=== PATIENT | female | born 2000 | race African-American/Black ===

== ENCOUNTER 2023-03-27 22:18 | Emergency (ER) | payer OTHER | END 2023-03-28 00:11 | disposition home or self-care (01) | LOC: CSHERS 22:18 | DX: O99.891 Other specified diseases and conditions complicating pregnancy (principal); R10.30 Lower abdominal pain, unspecified; O99.511 Diseases of the respiratory system complicating pregnancy, first trimester; J45.909 Unspecified asthma, uncomplicated; O99.331 Smoking (tobacco) complicating pregnancy, first trimester; F17.210 Nicotine dependence, cigarettes, uncomplicated; Z3A.01 Less than 8 weeks gestation of pregnancy | CPT/HCPCS: 76801 ==

== ENCOUNTER 2023-05-01 00:58 | Emergency (ER) | payer OTHER ==
[2023-05-01 01:42] LABS: Bilirubin Neg (Negative); Blood, Urine 25 (Negative); Clarity Slightly Cloudy (Clear); Glucose, Urine (Dipstick) Normal (Negative); Ketone, Urine 5 mg/dL (Negative); Leukocyte Negative (Negative); Nitrite Positive (Negative); Protein, Urine (Dipstick) 15 mg/dl (Neg-Trace)
[2023-05-01 01:59] LABS: CAUTI Indications for Culture Pelvic or flank pain; RBC/HPF 0-3 HPF (0-3); Squamous Epithelial 0-3 HPF (0-3)
[2023-05-01 02:00] LABS: Bacteria/HPF 2+ HPF (None Seen); Urine Culture Reflex No No
[2023-05-01 02:21] LABS: #Basophils 0.1 10x3/uL (0.0-0.2); #Eosinphils 0.1 10x3/uL (0.0-0.5); #Monocytes 0.9 10x3/uL (0.0-1.1); #Neutrophils 3.9 10x3/uL (1.5-8.4); %Basophils 0.7 % (0.0-2.0); %Eosinophils 1.7 % (0.0-6.0); %Lymphocytes 28.5 % (18.0-47.0); %Monocytes 12.8 % (0.0-10.0); %Neutrophils 56.2 % (40.0-75.0); Hemoglobin 11.3 g/dL (12.0-15.5); Mean Corpuscular HGB CONC 35.3 g/dL (32.0-36.0); Mean Corpuscular Hemoglobin 31.3 pg (27.0-33.0); Mean Corpuscular Volume 88.6 fl (81.6-98.3); Mean Platelet Volume 9.9 fl (7.4-10.4); Platelet Count 236 10x3/uL (150-450); RBC Distribution Width 12.7 % (11.5-14.5); Red Blood Cell (RBC) Count 3.61 10x6/uL (3.90-5.03)
[2023-05-01] MEDS ORDERED: cefTRIAXone (ROCEPHIN) 1 GM VIAL ONE (02:34)
[2023-05-01 02:36] LABS: ALT (SGPT) 8 U/L (8-55); AST (SGOT) 12 U/L (5-34); Albumin 3.6 g/dL (3.5-5.0); Alkaline Phosphatase 35 U/L (40-110); Anion Gap 14 mmol/L (10-20); BUN (Urea Nitrogen) 10 mg/dL (7.0-18.7); Bilirubin, Total 0.2 mg/dL (0.2-1.2); Calc. Creatinine Clearance 0 mL/min (70-130); Calcium 8.8 mg/dL (7.8-10.44); Carbon Dioxide 20 mmol/L (22-29); Chloride 105 mmol/L (98-107); Estimated GFR 129; Globulin 2.6 g/dL (2.4-3.5); Glucose 81 mg/dL (70-105); Potassium 3.9 mmol/L (3.5-5.1); Protein, Total 6.2 g/dL (6.0-8.3); Sodium 135 mmol/L (136-145)
== END 2023-05-01 03:07 | disposition home or self-care (01) ==
LOC: CSHERS 00:58
DX: O23.41 Unspecified infection of urinary tract in pregnancy, first trimester (principal); O99.511 Diseases of the respiratory system complicating pregnancy, first trimester; J45.909 Unspecified asthma, uncomplicated; Z3A.11 11 weeks gestation of pregnancy
CPT/HCPCS: 76815; 80053; 81001; 84702; 85025; 87077; 87086; 87186; 96374; J0696

== ENCOUNTER 2023-07-06 15:59 | Day surgery (SDC) | payer OTHER ==
[2023-07-06 16:12] VITALS: BMI 19.5
[2023-07-06] MEDS ORDERED: hydrALAZINE 20 MG/ML VIAL SLOW IVP PRN (16:54)
[2023-07-06 17:55] LABS: #Eosinphils 0.1 10x3/uL (0.0-0.5); #Monocytes 0.6 10x3/uL (0.0-1.1); #Neutrophils 4.2 10x3/uL (1.5-8.4); %Basophils 0.3 % (0.0-2.0); %Eosinophils 2.1 % (0.0-6.0); %Lymphocytes 12.6 % (18.0-47.0); %Neutrophils 73.7 % (40.0-75.0); Hemoglobin 10.2 g/dL (12.0-15.5); Mean Corpuscular HGB CONC 35.2 g/dL (32.0-36.0); Mean Corpuscular Hemoglobin 32.2 pg (27.0-33.0); Mean Corpuscular Volume 91.5 fl (81.6-98.3); Mean Platelet Volume 10.7 fl (7.4-10.4); Platelet Count 171 10x3/uL (150-450); RBC Distribution Width 13.4 % (11.5-14.5); Red Blood Cell (RBC) Count 3.17 10x6/uL (3.90-5.03); White Blood Cell (WBC) Count 5.7 10x3/uL (3.5-10.5)
[2023-07-06 18:00] LABS: ALT (SGPT) 11 U/L (8-55); AST (SGOT) 13 U/L (5-34); Albumin 3.2 g/dL (3.5-5.0); Alkaline Phosphatase 41 U/L (40-110); Anion Gap 11 mmol/L (10-20); BUN (Urea Nitrogen) 7 mg/dL (7.0-18.7); Bilirubin, Total 0.3 mg/dL (0.2-1.2); Calc. Creatinine Clearance 115 mL/min (70-130); Calcium 8.5 mg/dL (7.8-10.44); Carbon Dioxide 22 mmol/L (22-29); Chloride 106 mmol/L (98-107); Estimated GFR 130; Globulin 2.6 g/dL (2.4-3.5); Glucose 69 mg/dL (70-105); Potassium 3.4 mmol/L (3.5-5.1); Protein, Total 5.8 g/dL (6.0-8.3); Sodium 136 mmol/L (136-145)
[2023-07-06 18:22] LABS: Bilirubin Neg (Negative); Blood, Urine 10 (Negative); Clarity Slightly Cloudy (Clear); Glucose, Urine (Dipstick) Normal (Negative); Ketone, Urine Negative (Negative); Leukocyte 500 (Negative); Nitrite Negative (Negative); Protein, Urine (Dipstick) 15 mg/dl (Neg-Trace); Urobilinogen Normal mg/dL (Less than 2); pH, Urine 6.5 (5.0-9.0)
[2023-07-06 18:28] LABS: SARS-CoV-2 NAA Rapid Test Not Detected (NotDetected)
[2023-07-06] MEDS ORDERED: Acetaminophen 500 MG TAB PO SCH (18:30)
[2023-07-06 18:45] LABS: Bacteria/HPF 2+ HPF (None Seen); RBC/HPF 0-3 HPF (0-3)
[2023-07-06] MEDS ORDERED: Polyethylene Glycol 3350 17 GM Packet PO SCH (19:15)
[2023-07-06] MEDS ORDERED: Docusate 100 MG CAP PO SCH (19:15)
== END 2023-07-06 19:38 | disposition home or self-care (01) ==
LOC: CSHLD/OP 15:59
PROVIDERS: ATTEND Family Medicine
DX: O99.891 Other specified diseases and conditions complicating pregnancy (principal); O99.512 Diseases of the respiratory system complicating pregnancy, second trimester; R10.9 Unspecified abdominal pain; R09.81 Nasal congestion; J45.909 Unspecified asthma, uncomplicated; Z3A.21 21 weeks gestation of pregnancy; Z79.899 Other long term (current) drug therapy; Z20.822 Contact with and (suspected) exposure to COVID-19
CPT/HCPCS: 36415; 80053; 81003; 81015; 85025

== ENCOUNTER 2023-08-12 16:15 | Emergency (ER) | payer OTHER | END 2023-08-12 17:27 | disposition left against medical advice (07) | LOC: CSHERS 16:15 | DX: Z53.21 Procedure and treatment not carried out due to patient leaving prior to being seen by health care provider (principal) ==

== ENCOUNTER 2023-08-15 13:53 | Inpatient (IN) | payer OTHER ==
[2023-08-15 15:16] VITALS: BMI 20.5
[2023-08-15] MEDS ORDERED: hydrALAZINE 20 MG/ML VIAL SLOW IVP PRN ×2 (15:42→21:48)
[2023-08-15 16:12] LABS: #Eosinphils 0.1 10x3/uL (0.0-0.5); #Monocytes 1.1 10x3/uL (0.0-1.1); #Neutrophils 7.1 10x3/uL (1.5-8.4); %Basophils 0.3 % (0.0-2.0); %Eosinophils 0.6 % (0.0-6.0); %Lymphocytes 12.2 % (18.0-47.0); %Monocytes 11.5 % (0.0-10.0); %Neutrophils 75.2 % (40.0-75.0); Hemoglobin 9.4 g/dL (12.0-15.5); Mean Corpuscular HGB CONC 36.2 g/dL (32.0-36.0); Mean Corpuscular Hemoglobin 32.1 pg (27.0-33.0); Mean Corpuscular Volume 88.7 fl (81.6-98.3); Platelet Count 185 10x3/uL (150-450); Red Blood Cell (RBC) Count 2.93 10x6/uL (3.90-5.03); White Blood Cell (WBC) Count 9.4 10x3/uL (3.5-10.5)
[2023-08-15 16:21] LABS: Bilirubin Neg (Negative); Blood, Urine 250 (Negative); Clarity Slightly Cloudy (Clear); Glucose, Urine (Dipstick) Normal (Negative); Ketone, Urine 50 mg/dL (Negative); Leukocyte 100 (Negative); Nitrite Positive (Negative); Protein, Urine (Dipstick) 500 mg/dl (Neg-Trace); Urobilinogen Normal mg/dL (Less than 2); pH, Urine 6.5 (5.0-9.0)
[2023-08-15 16:29] LABS: ALT (SGPT) Less than 7 U/L (8-55); AST (SGOT) 10 U/L (5-34); Albumin 3.3 g/dL (3.5-5.0); Alkaline Phosphatase 52 U/L (40-110); Anion Gap 14 mmol/L (10-20); BUN (Urea Nitrogen) 4 mg/dL (7.0-18.7); Bilirubin, Total 0.3 mg/dL (0.2-1.2); Calc. Creatinine Clearance 130 mL/min (70-130); Calcium 8.1 mg/dL (7.8-10.44); Carbon Dioxide 19 mmol/L (22-29); Chloride 108 mmol/L (98-107); Estimated GFR 131; Globulin 2.5 g/dL (2.4-3.5); Glucose 64 mg/dL (70-105); Potassium 3.4 mmol/L (3.5-5.1); Protein, Total 5.8 g/dL (6.0-8.3); Sodium 138 mmol/L (136-145)
[2023-08-15 16:52] LABS: Bacteria/HPF 3+ HPF (None Seen); CAUTI Indications for Culture Pregnancy; Mucous/LPF Rare LPF (<2+); RBC/HPF 21-50 HPF (0-3); Squamous Epithelial 0-3 HPF (0-3)
[2023-08-15 16:53] LABS: Urine Culture Reflex Yes Yes
[2023-08-15 17:09] LABS: Fetal Membranes Rupture RUPTURE DETECTED (No Rupture)
[2023-08-15] MEDS ORDERED: HYDROmorphone 0.5 MG/0.5 ML SYRINGE ONE (17:45)
[2023-08-15] MEDS ORDERED: Ondansetron PF 4 MG/2 ML Vial IVP PRN ×3 (18:18→21:48)
[2023-08-15] MEDS ORDERED: Meperidine HCl/PF 25 MG (1 mL) VIAL SLOW IVP PRN (18:18)
[2023-08-15] MEDS ORDERED: Promethazine HCl 25 MG/ML VIAL IM PRN ×2 (18:18→21:48)
[2023-08-15] MEDS ORDERED: HYDROmorphone 0.5 MG/0.5 ML SYRINGE SLOW IVP PRN (18:18)
[2023-08-15] MEDS ORDERED: diphenhydrAMINE 50 MG/ML VIAL IM PRN (18:18)
[2023-08-15] MEDS ORDERED: Naloxone HCl 0.4 mg/ml Vial IV PRN (18:18)
[2023-08-15] MEDS ORDERED: fentaNYL 50 mcg/mL 1 mL Vial SLOW IVP PRN (18:18)
[2023-08-15] MEDS ORDERED: Communication Order-Pharmacy FS SCH (18:30)
[2023-08-15 18:31] LABS: Analyzer IN Cardio CS NICU; Critical Notified By: CP.PH; Critical Notified Whom: NUR.VM6; RapidComm Collect By NUR.VM6; pH (Cord, venous) 7.304 (7.250-7.350)
[2023-08-15 18:36] LABS: Analyzer IN Cardio CS NICU; Critical Notified By: CP.PH; Critical Notified Whom: NUR.VM6; RapidComm Collect By NUR.VM6
[2023-08-15] MEDS: FENTANYL 500 MCG/10 ML VIAL 1,000 MCG in Sodium Chloride 0.9% 30 ML IV PRN (19:57)
[2023-08-15] MEDS: Lactated Ringer's 1,000 ML IV SCH (20:00)
[2023-08-15] MEDS: Ketorolac Tromethamine 30 MG (1 mL) VIAL IVP SCH (20:14)
[2023-08-15] MEDS: cefTRIAXone\\ROCEPHIN 1 GM in Sodium Chloride 0.9% 100 ML IVPB SCH (20:22)
[2023-08-15] MEDS ORDERED: Azithromycin 500 MG in Syringe 0 ML IVPB SCH (21:00)
[2023-08-15] MEDS: metroNIDAZOLE 500 MG in Premix 1 BAG IVPB SCH (21:27)
[2023-08-15] MEDS ORDERED: Simethicone Chewable 80 MG TAB PO PRN (21:48)
[2023-08-15] MEDS ORDERED: Bisacodyl 10 MG SUPP PR PRN (21:48)
[2023-08-15] MEDS ORDERED: Lanolin Ointment 7 GM TUBE TOP PRN (21:48)
[2023-08-15] MEDS ORDERED: diphenhydrAMINE 25 MG CAP PO PRN (21:48)
[2023-08-16 01:30] LABS: Syphilis Antibody Nonreactive (Nonreactive); Syphilis Antibody Index 0.04 S/CO (<1.00 Non-Reactive)
[2023-08-16 01:31] LABS: HIV (1/2) Antibody/Antigen Non-Reactive (NonReactive); HIV 1/2 INDEX 0.09 S/CO (<1.00); Hep B Surf Ag - L&D Non-Reactive S/CO (NonReactive)
[2023-08-16] MEDS: CEFAZOLIN 2 GM in Sodium Chloride 0.9% 100 ML IVPB SCH (02:05)
[2023-08-16] MEDS: Docusate 100 MG CAP PO SCH ×2 (06:17→09:41)
[2023-08-16] MEDS: Ferrous Sulfate 325 MG TAB PO SCH ×2 (06:17→09:41)
[2023-08-16 06:52] LABS: Hematocrit 20.8 % (34.9-44.5); Hemoglobin 7.5 g/dL (12.0-15.5); Mean Corpuscular HGB CONC 36.1 g/dL (32.0-36.0); Mean Corpuscular Hemoglobin 31.8 pg (27.0-33.0); Mean Corpuscular Volume 88.1 fl (81.6-98.3); Mean Platelet Volume 10.6 fl (7.4-10.4); Platelet Count 179 10x3/uL (150-450); Red Blood Cell (RBC) Count 2.36 10x6/uL (3.90-5.03); White Blood Cell (WBC) Count 16.1 10x3/uL (3.5-10.5)
[2023-08-16] MEDS: diphenhydrAMINE 50 MG/ML VIAL IVP PRN (10:34)
[2023-08-16] MEDS: Lactated Ringer's 1,000 ML IV SCH (11:50)
[2023-08-16] MEDS: cefTRIAXone\\ROCEPHIN 2 GM in Sodium Chloride 0.9% 100 ML IVPB SCH (16:30)
[2023-08-16] MEDS: Ibuprofen 800 MG TAB PO SCH (16:30)
[2023-08-16] MEDS: diphenhydrAMINE 25 MG CAP PO PRN (20:49)
[2023-08-17] MEDS: CEFAZOLIN 2 GM in Sodium Chloride 0.9% 100 ML IVPB SCH (06:06)
[2023-08-17] MEDS ORDERED: Meperidine HCl/PF 25 MG (1 mL) VIAL IM PRN (07:58)
[2023-08-17] MEDS: HYDROcodone/Acetaminophen 5/325 mg Tablet PO PRN ×2 (08:38→13:01)
[2023-08-17] MEDS: CEFAZOLIN 2 GM VIAL ONE (13:23)
[2023-08-17] MEDS: Ondansetron PF 4 MG/2 ML Vial IVP SCH (13:23)
[2023-08-17] MEDS: Famotidine/PF 20 mg/2ml Vial SLOW IVP SCH (13:23)
[2023-08-17] MEDS: Dexmedetomidine 200 MCG/2 ML VIAL ONE (13:23)
[2023-08-17] MEDS: Oxytocin 30 units/NS 500 ML 500 ML ONE (13:23)
[2023-08-17] MEDS: Morphine 4 MG/ML VIAL SLOW IVP SCH (13:23)
[2023-08-17] MEDS: Azithromycin 500 MG in Sodium Chloride 0.9% 250 ML 250 ML IVPB SCH (13:23)
[2023-08-17] MEDS: fentaNYL 50 mcg/mL 1 mL Vial ONE (13:23)
[2023-08-17] MEDS: Boostrix 0.5 ML (Tdap) VIAL (>/=7 yrs of age) IM ONE (13:23)
[2023-08-18 08:31] VITALS: BP 119/74; TEMP 98.4
[2023-08-18] MEDS: Cephalexin 500 MG CAP PO SCH (09:35)
[2023-08-18] MEDS: metroNIDAZOLE 500 MG TAB PO SCH (09:36)
== END 2023-08-18 14:20 | disposition home or self-care (01) | DRG 787 ==
LOC: CSHERS 13:53 → CSHLD/OP 13:53 → CSHLD 18:03 → CSHPP 22:05
PROVIDERS: ADMIT Family Medicine; ATTEND Family Medicine
PROC: 10D00Z1 Extraction of Products of Conception, Low, Open Approach (ICD-10-PCS; principal; 2023-08-15)
DX: O98.82 Other maternal infectious and parasitic diseases complicating childbirth (principal); N12 Tubulo-interstitial nephritis, not specified as acute or chronic; Z3A.27 27 weeks gestation of pregnancy; N20.0 Calculus of kidney; Z37.0 Single live birth; O76 Abnormality in fetal heart rate and rhythm complicating labor and delivery; O77.0 Labor and delivery complicated by meconium in amniotic fluid
CPT/HCPCS: 36415; 51702; 76770; 76815; 80053; 81001; 82805; 84112; 85025; 85027; 86780; 87077; 87086; 87186; 87340; 87389; 87480; 87510; 87660; 88307; 99285; J0696; J1170; J1200; J1885; J3010; J3490; J7120

== ENCOUNTER 2024-06-07 19:20 | Emergency (ER) | payer OTHER | END 2024-06-07 21:03 | disposition home or self-care (01) | LOC: CSHERS 19:20 | DX: O99.891 Other specified diseases and conditions complicating pregnancy (principal); R10.9 Unspecified abdominal pain; O99.331 Smoking (tobacco) complicating pregnancy, first trimester; F17.210 Nicotine dependence, cigarettes, uncomplicated; Z3A.01 Less than 8 weeks gestation of pregnancy | CPT/HCPCS: 76801 ==

== ENCOUNTER 2024-08-17 14:35 | Emergency (ER) | payer OTHER ==
[2024-08-17 16:10] LABS: #Basophils 0.04 10x3/uL (0.0-0.2); #Eosinophils 0.18 10x3/uL (0.0-0.5); #Monocytes 0.82 10x3/uL (0.0-1.1); #Neutrophils 4.58 10x3/uL (1.5-8.4); %Basophils 0.5 % (0.0-2.0); %Eosinophils 2.4 % (0.0-6.0); %Lymphocytes 24.5 % (18.0-47.0); %Neutrophils 61.3 % (40.0-75.0); Hematocrit 35.3 % (34.9-44.5); Hemoglobin 11.9 g/dL (12.0-15.5); Mean Corpuscular HGB CONC 33.7 g/dL (32.0-36.0); Mean Corpuscular Hemoglobin 29.6 pg (27.0-33.0); Mean Corpuscular Volume 87.8 fL (81.6-98.3); Mean Platelet Volume 10.7 fL (7.4-10.4); Platelet Count 242 10x3/uL (150-450); RBC Distribution Width 13.2 % (11.5-14.5); Red Blood Cell (RBC) Count 4.02 10x6/uL (3.90-5.03); White Blood Cell (WBC) Count 7.47 10x3/uL (3.5-10.5)
[2024-08-17 16:22] LABS: ALT (SGPT) Less than 7 U/L (Less than 34); AST (SGOT) 13 U/L (11-34); Albumin 3.2 g/dL (3.1-4.5); Alkaline Phosphatase 43 U/L (40-110); Anion Gap 12 mmol/L (10-20); BUN (Urea Nitrogen) 8 mg/dL (7.0-18.7); Bilirubin, Total 0.2 mg/dL (0.3-1.2); Calc. Creatinine Clearance 0 mL/min (70-130); Calcium 8.4 mg/dL (7.8-10.44); Carbon Dioxide 20 mmol/L (22-29); Chloride 107 mmol/L (98-107); Estimated GFR 130; Globulin 3.6 g/dL (2.4-3.5); Glucose 75 mg/dL (70-105); Lipase 106 U/L (8-78); Magnesium 1.7 mg/dL (1.6-2.6); Potassium 3.9 mmol/L (3.5-5.1); Protein, Total 6.8 g/dL (6.0-8.3); Sodium 135 mmol/L (136-145)
[2024-08-17 16:52] LABS: Bilirubin Neg (Negative); Blood, Urine Negative (Negative); Glucose, Urine (Dipstick) Normal (Negative); Ketone, Urine Negative (Negative); Leukocyte Negative (Negative); Nitrite Negative (Negative); Protein, Urine (Dipstick) 15 mg/dl (Neg-Trace)
[2024-08-17 17:01] LABS: Clarity Clear (Clear)
[2024-08-17 17:09] LABS: Bacteria/HPF None Seen HPF (None Seen); CAUTI Indications for Culture Pelvic or flank pain; Mucous/LPF 2+ LPF (<2+); RBC/HPF None Seen HPF (0-3); Squamous Epithelial 0-3 HPF (0-3); WBC/HPF None Seen HPF (0-3)
[2024-08-17 17:10] LABS: Urine Culture Reflex No No
== END 2024-08-17 18:02 | disposition home or self-care (01) ==
LOC: CSHERS 14:35
DX: O99.892 Other specified diseases and conditions complicating childbirth (principal); R10.30 Lower abdominal pain, unspecified; O99.332 Smoking (tobacco) complicating pregnancy, second trimester; F17.210 Nicotine dependence, cigarettes, uncomplicated; Z3A.17 17 weeks gestation of pregnancy
CPT/HCPCS: 76815; 80053; 81001; 83690; 83735; 84702; 85025

== ENCOUNTER 2024-08-19 00:34 | Emergency (ER) | payer OTHER ==
[2024-08-19] MEDS ORDERED: Acetaminophen 500 MG TAB ONE (01:12)
[2024-08-19 01:20] LABS: #Basophils 0.04 10x3/uL (0.0-0.2); #Eosinophils 0.29 10x3/uL (0.0-0.5); #Monocytes 0.76 10x3/uL (0.0-1.1); #Neutrophils 4.39 10x3/uL (1.5-8.4); %Basophils 0.5 % (0.0-2.0); %Eosinophils 3.8 % (0.0-6.0); %Lymphocytes 28.2 % (18.0-47.0); %Monocytes 9.9 % (0.0-10.0); %Neutrophils 57.3 % (40.0-75.0); Hematocrit 34.6 % (34.9-44.5); Hemoglobin 12.2 g/dL (12.0-15.5); Mean Corpuscular HGB CONC 35.3 g/dL (32.0-36.0); Mean Corpuscular Hemoglobin 30.8 pg (27.0-33.0); Mean Corpuscular Volume 87.4 fL (81.6-98.3); Mean Platelet Volume 10.5 fL (7.4-10.4); Platelet Count 255 10x3/uL (150-450); RBC Distribution Width 13.3 % (11.5-14.5); Red Blood Cell (RBC) Count 3.96 10x6/uL (3.90-5.03); White Blood Cell (WBC) Count 7.66 10x3/uL (3.5-10.5)
[2024-08-19 01:21] LABS: Bilirubin Neg (Negative); Blood, Urine Negative (Negative); Clarity Clear (Clear); Glucose, Urine (Dipstick) Normal (Negative); Ketone, Urine Negative (Negative); Leukocyte Negative (Negative); Nitrite Negative (Negative); Protein, Urine (Dipstick) Negative (Neg-Trace); Urobilinogen Normal mg/dL (Less than 2)
[2024-08-19 01:33] LABS: ALT (SGPT) 7 U/L (Less than 34); AST (SGOT) 14 U/L (11-34); Albumin 3.4 g/dL (3.1-4.5); Alkaline Phosphatase 49 U/L (40-110); Anion Gap 13 mmol/L (10-20); BUN (Urea Nitrogen) 10 mg/dL (7.0-18.7); Bilirubin, Total 0.1 mg/dL (0.3-1.2); Calc. Creatinine Clearance 0 mL/min (70-130); Calcium 9.2 mg/dL (7.8-10.44); Carbon Dioxide 21 mmol/L (22-29); Chloride 105 mmol/L (98-107); Estimated GFR 127; Globulin 3.7 g/dL (2.4-3.5); Glucose 72 mg/dL (70-105); Lipase 150 U/L (8-78); Potassium 4.1 mmol/L (3.5-5.1); Protein, Total 7.1 g/dL (6.0-8.3); Sodium 135 mmol/L (136-145)
[2024-08-19 01:39] LABS: Bacteria/HPF Rare-Few HPF (None Seen); CAUTI Indications for Culture Pelvic or flank pain; RBC/HPF None Seen HPF (0-3); Squamous Epithelial 0-3 HPF (0-3); WBC/HPF None Seen HPF (0-3)
[2024-08-19 01:40] LABS: Urine Culture Reflex No No
== END 2024-08-19 03:21 | disposition home or self-care (01) ==
LOC: CSHERS 00:34
DX: R10.30 Lower abdominal pain, unspecified (principal); F17.210 Nicotine dependence, cigarettes, uncomplicated
CPT/HCPCS: 80053; 81001; 83690; 85025